=== PATIENT | female | born 1970 | race Caucasian/White ===

== ENCOUNTER 2017-04-25 20:11 | Emergency (ER) | payer OTHER ==
[~2017-04-25] VITALS: Wt 70.3 kg
[~2017-04-25 20:11] MED LIST: CIPROFLOXACIN500 MG PO; PYRIDIUM200 MG PO; TRAMADOL HCL50 MG PO
[2017-04-25] MEDS ORDERED: ACULAR 3ML 3 ML5 ML OPH (20:35)
[2017-04-25] MEDS ORDERED: TOBRAMYCIN 5 ML5 M2 OPH (20:35)
== END 2017-04-25 22:08 | disposition home or self-care (01) ==
LOC: ED 20:11
DX: T15.02XA Foreign body in cornea, left eye, initial encounter (principal); Z88.5 Allergy status to narcotic agent

== ENCOUNTER 2019-11-23 22:25 | Emergency (ER) | payer OTHER ==
[~2019-11-23] VITALS: Ht 162.5 cm; Wt 79.4 kg
[~2019-11-23 22:25] MED LIST changes: +ACULAR 3ML 3 ML5 ML OPH; +TOBRAMYCIN 5 ML5 M2 OPH
[2019-11-23] MEDS ORDERED: CEPHALEXIN500 M1 PO (23:58)
== END 2019-11-24 00:41 | disposition home or self-care (01) ==
LOC: ED 22:25
DX: S61.214A Laceration without foreign body of right ring finger without damage to nail, initial encounter (principal); Z79.899 Other long term (current) drug therapy; W45.8XXA Other foreign body or object entering through skin, initial encounter; Y93.89 Activity, other specified; Y92.89 Other specified places as the place of occurrence of the external cause; Y99.8 Other external cause status

== ENCOUNTER 2023-06-30 15:17 | Emergency (ER) | payer OTHER ==
[~2023-06-30] VITALS: Ht 165.1 cm; Wt 68.0 kg
[~2023-06-30 15:17] MED LIST changes: +CEPHALEXIN500 M1 PO
[2023-06-30 16:36] LABS: HEMATOCRIT 45.8 % (37.0-47.0); MEAN CELL VOLUME 90.9 fl (81.0-99.0); MEAN CORPUSCULAR HGB 29.6 pg (27.0-31.0); MEAN CORPUSCULAR HGB CONC 32.5 g/dl (33.0-37.0); MEAN PLATELET VOLUME 10.3 fl (9.6-12.3); PLATELET COUNT AUTOMATED 202 10*3/uL (130-400); RED BLOOD COUNT 5.04 10*6/uL (4.10-5.10); RED CELL DISTRI WIDTH 13.5 % (0-14.5); WHITE BLOOD COUNT 8.2 10*3/uL (4.8-10.8)
[2023-06-30 16:37] LABS: MANUAL DIFF REFLEX YES
[2023-06-30 16:47] LABS: ACT PARTIAL THROMBO TIME 31.6 SECONDS (20.0-32.1)
[2023-06-30 17:16] LABS: ALKALINE PHOSPHATASE 102 U/L (46-116); BUN 15 mg/dl (9-23); CHLORIDE 106 mmol/L (98-107); LIPASE 30 U/L (12-53); POTASSIUM 4.2 mmol/L (3.4-5.1); SGPT/ALT 20 U/L (5-49); TOTAL PROTEIN 7.6 gm/dL (6.0-8.0)
[2023-06-30 17:25] LABS: PLATELET SUFFICIENCY NORMAL (NORMAL); TOTAL CELLS COUNTED 100 #CELLS
[2023-06-30 17:26] LABS: TOXIC GRANULATION SLIGHT
[2023-06-30] MEDS ORDERED: ONDANSETRON4 MG SL (18:40)
== END 2023-06-30 18:57 | disposition home or self-care (01) ==
LOC: ED 15:17
PROVIDERS: Emergency Medicine
DX: K52.9 Noninfective gastroenteritis and colitis, unspecified (principal); R11.10 Vomiting, unspecified; Z88.8 Allergy status to other drugs, medicaments and biological substances